=== PATIENT | male | born 1990 | race Caucasian/White ===

== ENCOUNTER → 2017-05-07 | Outpatient (CLI) | payer BC, OTHER | END | disposition home or self-care (01) | LOC: GMAB 10:36 | PROVIDERS: ATTEND Family Medicine | DX: Z00.00 Encounter for general adult medical examination without abnormal findings (principal) ==

== ENCOUNTER → 2019-07-18 | Outpatient (CLI) | payer BC ==
--- NOTE | 2019-07-19 12:28 | MRI ---
EXAM DESCRIPTION: Lumbar Spine w/o Contrast CLINICAL HISTORY: LUMBAR DISC HERNIATION COMPARISON: None Available. TECHNIQUE: MRI of the lumbar spine is performed according to our usual protocol with axial and sagittal multi sequence imaging. FINDINGS: Sagittal T2 images reveal decreased signal intensity consistent with desiccation of the intervertebral discs at levels L4-5 and L5-S1. Posterior annular bulges are most prominent at these levels as well. No prevertebral mass or aneurysm. Lower cord and conus appear normal. Tip of the conus is behind L1 wall. Sagittal T1 images reveal benign marrow signal characteristics. Normal T1 signal intensity and appearance of the lower cord and conus. Sagittal STIR images are negative for marrow edema within the vertebral bodies or posterior elements. No paraspinous fluid collection or cystic lesion. Axial T1 and T2-weighted images were obtained to evaluate the disc levels. T11-12: Axial T1 images show left paracentral protrusion measuring 3 mm in AP dimension and approximately 7 mm in mediolateral width with slight ventral cord contouring. No spinal stenosis or significant neural foraminal narrowing. T12-L1: Minimal posterior annular bulge without spinal stenosis or neural foraminal narrowing. Facets appear normal. Normal appearance of the lower cord and conus. L1-2: Mild diffuse posterior annular bulge without focal herniation. No spinal stenosis or neural foraminal narrowing. Mild facet hypertrophic changes. L2-3: No posterior annular bulge or herniation. No spinal stenosis or neural foraminal narrowing. Facets appear normal. L3-4: No posterior annular bulge or herniation. No spinal stenosis or significant neural foraminal narrowing. Facets appear normal. L4-5: Moderate diffuse posterior annular bulge without focal herniation. No significant spinal stenosis. Mild bilateral neural foraminal narrowing. Mild facet hypertrophy with moderate narrowing of subarticular recesses crowding the descending L5 nerve roots. L5-S1: Mild diffuse posterior annular bulge with superimposed midline and left paracentral disc herniation measuring 4 mm in AP dimension and 1.6 cm mediolateral width. Behind upper S1, the extruded disc fragment is seen in the left paracentral location measuring 8 x 6 mm. This impinges upon and posteriorly displaces the descending left S1 nerve root at the level of the left lateral recess. Upper sacrum appears intact. No retroperitoneal mass or aneurysm. IMPRESSION: Midline and left paracentral L5-S1 disc herniation with extruded fragment 8 mm in size impinging upon descending left S1 nerve root at the lateral recess level. Electronically signed by: Kaushal Reeves MD 07/19/2019 12:26 PM [facility]
== END ==
LOC: MRI 11:06
PROVIDERS: ATTEND Psychiatry & Neurology Neurology
DX: M51.16 Intervertebral disc disorders with radiculopathy, lumbar region (principal); M51.26 Other intervertebral disc displacement, lumbar region